=== PATIENT | male | born 1970 | race Caucasian/White ===

== ENCOUNTER 2016-09-17 19:17 | Inpatient (IN) | payer BC ==
[~2016-09-17] VITALS: Ht 172.7 cm; Wt 94.1 kg
[2016-09-17] VITALS (7 sets, daily range): BP systolic 128–168; BP diastolic 65–88
--- NOTE | ~2016-09-17 | ST ---
[place], [place] EXERCISE STRESS TEST REPORT NAME: JILLIAN STARKS [facility] #: [id number] UNIT #: [id number] ROOM: 510 DOCTOR: DYLAN CABRERA MD BIRTHDATE: [birth year] DOS: 09/19/2016 COMBINED EXERCISE, PHARMACOLOGIC MYOCARDIAL PERFUSION STRESS TEST INDICATIONS: Precordial chest pain, left ventricular dysfunction. PROCEDURE: The patient walked for 5 minutes on a full Davion protocol. He had not achieved 85% of his maximum predicted heart rate at that point, but developed dyspnea and leg fatigue. The treadmill was leveled and the speed of the belt was decreased to 1.6 miles per hour. At that point, he was given regadenoson 0.4 mg intravenously followed by a saline flush. He was asked to walk for 1 more minute, radionuclide was administered during that time. The patient did experience some dyspnea and fatigue, but had no chest pain during exercise. After exercise, he stated that his chest had "a little." His resting heart rate of 81 jadiel to 136, which represented 78% of his maximum predicted heart rate. The resting blood pressure of 100/74 jadiel to 148/72. He did not have any diagnostic ST or T-wave changes with exercise. IMPRESSION: 1. Limited exercise capacity due to dyspnea and fatigue. The patient did not have any diagnostic electrocardiographic changes at the level of exercise achieved. 2. Well tolerated infusion of regadenoson. 3. Radionuclide was administered. Please see the separately dictated imaging report for further details of the patient's stress test results. DYLAN CABRERA MD CM:STRESS:EXERCISE STRESS TEST REPORT [id number] DYLAN CABRERA MD
--- NOTE | ~2016-09-17 | WRIGHTHP ---
[place], [place] PATIENT HISTORY AND PHYSICAL EXAM NAME: JILLIAN STARKS [facility] #: [id number] UNIT #: [id number] ROOM: 510 DOCTOR: CHELLE PEOPLES DO BIRTHDATE: [birth year] DOS: 09/18/2016 PRIMARY CARE PHYSICIAN: Dr. Shukla. The patient was seen and evaluated with the resident on 09/18/2016. Please see the resident's note for further details. ASSESSMENT: 1. Acute bronchitis. 2. Chest pain, rule out myocardial infarction. 3. Dyspnea on exertion, most likely secondary to bronchitis. However, cardiac issues are suspected. 4. Diabetes mellitus type 2, currently diet controlled. 5. Tobacco abuse. 6. Hyperlipidemia. 7. History of Hodgkin's and non-Hodgkin's lymphoma diagnosed in 2002, treated with both stem cell transplant and chemotherapy. 8. Gastroesophageal reflux disease. 9. History of kidney stones. 10. History of noncompliance with medications. PLAN: Continue IV steroids, antibiotics and aerosol treatments. Cardiology has been consulted. An echocardiogram is ordered the stress test is planned for tomorrow. CHELLE PEOPLES DO CM:HISPHYS:PATIENT HISTORY AND PHYSICAL EXAMINATION [id number] CHELLE PEOPLES DO 09/18/16 1237 interface
--- NOTE | ~2016-09-17 | EKG ---
[place], [place] ELECTROCARDIOGRAM REPORT NAME: JILLIAN STARKS UNIT #: [id number] ROOM: 510 DOCTOR: DYLAN CABRERA MD BIRTHDATE: [birth year] DOS: 09/17/2016 TIME: 19:42 p.m. FINDINGS: Normal sinus rhythm at rate 84. Probable left atrial enlargement. Left ventricular hypertrophy. Nonspecific T-wave flattening. Abnormal electrocardiogram. DYLAN CABRERA MD CM:EKGRPT:ELECTROCARDIOGRAM REPORT [id number] DYLAN CABRERA MD
[~2016-09-17 19:17] MED LIST: ATORVASTATIN CA40 M1 PO; CYCLOBENZAPRINE10 MG PO; Diabeta,Micron2.5 MG PO; METFORMIN500 MG PO; NAPROXEN375 M1 PO; NEOSPORIN1 OI1 TP; PERCOCET 325 MG1 TA5 PO; PREVACID30 M1 PO; PRILOSEC40 MG PO; ZOFRAN ODT4 MG SL
[2016-09-17] MEDS ORDERED: DEPO TESTOS200 MG/ML IM (19:27)
[2016-09-17 19:48] LABS: BASO % 0.3 % (0.0-1.0); EOS # 0.1 10*3/uL (0.0-0.4); EOS % 1.6 % (1.0-4.0); HEMATOCRIT 34.9 % (42.0-52.0); HEMOGLOBIN 11.7 g/dl (14.0-18.0); LYMPH % 27.4 % (27.0-41.0); MEAN CELL VOLUME 92.3 fl (80.0-94.0); MEAN CORPUSCULAR HGB CONC 33.5 g/dl (33.0-37.0); MEAN PLATELET VOLUME 9.5 fl (9.6-12.3); MONO # 0.5 10*3/uL (0.1-1.0); MONO % 6.2 % (3.0-9.0); NEUT # 4.7 10*3/uL (2.3-7.9); NEUT % 64.4 % (47.0-73.0); PLATELET COUNT AUTOMATED 135 10*3/uL (130-400); RED BLOOD COUNT 3.78 10*6/uL (4.50-5.90); RED CELL DISTRI WIDTH 14.1 % (0-14.5); WHITE BLOOD COUNT 7.3 10*3/uL (4.8-10.8)
[2016-09-17 20:05] LABS: ALBUMIN 3.9 gm/dl (3.1-4.5); ALKALINE PHOSPHATASE 95 U/L (45-117); BILIRUBIN, TOTAL 0.8 mg/dl (0.2-1.0); BUN 12 mg/dl (7-24); CARBON DIOXIDE 25 mmol/L (21-32); CHLORIDE 106 mmol/L (98-107); EST GLOM FILT AFRICAN AMERICAN > 60 ml/min; GLUCOSE 145 mg/dL (65-99); MAGNESIUM 1.9 mg/dL (1.5-2.1); POTASSIUM 3.4 mmol/L (3.5-5.1); SGOT/AST 21 IU/L (3-35); SGPT/ALT 28 U/L (12-78); SODIUM 141 mmol/L (136-145)
[2016-09-17 20:06] LABS: TROPONIN I 0.017 ng/ml (<0.045)
[2016-09-17 20:21] LABS: INTERNATIONAL NORM RATIO 1.1 (2.0-3.5); PROTHROMBIN TIME 11.5 SECONDS (9.0-12.4)
[2016-09-18 04:26] LABS: BASO % 0.4 % (0.0-1.0); EOS % 0.2 % (1.0-4.0); HEMATOCRIT 37.1 % (42.0-52.0); HEMOGLOBIN 12.5 g/dl (14.0-18.0); LYMPH # 0.7 10*3/uL (1.3-4.4); LYMPH % 12.4 % (27.0-41.0); MEAN CELL VOLUME 91.8 fl (80.0-94.0); MEAN CORPUSCULAR HGB 30.9 pg (27.0-31.0); MEAN CORPUSCULAR HGB CONC 33.7 g/dl (33.0-37.0); MEAN PLATELET VOLUME 9.3 fl (9.6-12.3); MONO # 0.1 10*3/uL (0.1-1.0); MONO % 1.5 % (3.0-9.0); NEUT # 4.7 10*3/uL (2.3-7.9); NEUT % 85.3 % (47.0-73.0); PLATELET COUNT AUTOMATED 127 10*3/uL (130-400); RED BLOOD COUNT 4.04 10*6/uL (4.50-5.90); RED CELL DISTRI WIDTH 14.1 % (0-14.5); WHITE BLOOD COUNT 5.5 10*3/uL (4.8-10.8)
[2016-09-18 04:39] LABS: BUN 12 mg/dl (7-24); CARBON DIOXIDE 25 mmol/L (21-32); CHLORIDE 108 mmol/L (98-107); EST GLOM FILT AFRICAN AMERICAN > 60 ml/min; GLUCOSE 161 mg/dL (65-99); MAGNESIUM 2.1 mg/dL (1.5-2.1); POTASSIUM 4.2 mmol/L (3.5-5.1); SODIUM 143 mmol/L (136-145)
[2016-09-18 04:41] LABS: HEMOGLOBIN A1c 6.2 % (4.8-5.6)
[2016-09-18 04:44] LABS: CHOLESTEROL 113 mg/dL (<200); CPK 124 U/L (39-308); FREE T4 1.12 ng/dl (0.76-1.46); HDL CHOLESTEROL 34 mg/dl (40-60); LDL CHOLESTEROL 68 mg/dL (9-159); PHOSPHOROUS 3.4 mg/dL (2.5-4.9); TRIGLYCERIDES 55 mg/dl (<150); VLDL CHOLESTEROL 11 mg/dL (6-40)
[2016-09-18 04:45] LABS: CKMB 1.7 ng/ml (0.5-3.6)
[2016-09-18 04:46] LABS: TROPONIN I < 0.015 ng/ml (<0.045)
[2016-09-18 07:15] LABS: FOLIC ACID 11.02 ng/mL (>5.38); VITAMIN D, 25-HYDROXY 32.2 ng/mL (30-100)
[2016-09-18 08:00] VITALS: BP 140/76
[2016-09-18 10:12] LABS: CKMB 1.6 ng/ml (0.5-3.6); CPK 127 U/L (39-308)
[2016-09-18 10:13] LABS: TROPONIN I < 0.015 ng/ml (<0.045)
[2016-09-18 12:00] VITALS: BP 133/66
[2016-09-18 16:00] VITALS: BP 148/77
[2016-09-18 20:00] VITALS: BP 140/68
[2016-09-19] VITALS: BP 126/74
[2016-09-19 07:13] LABS: BASO % 0.1 % (0.0-1.0); HEMATOCRIT 34.3 % (42.0-52.0); HEMOGLOBIN 11.5 g/dl (14.0-18.0); LYMPH # 0.7 10*3/uL (1.3-4.4); LYMPH % 9.5 % (27.0-41.0); MEAN CELL VOLUME 91.5 fl (80.0-94.0); MEAN CORPUSCULAR HGB 30.7 pg (27.0-31.0); MEAN CORPUSCULAR HGB CONC 33.5 g/dl (33.0-37.0); MEAN PLATELET VOLUME 10.3 fl (9.6-12.3); MONO # 0.4 10*3/uL (0.1-1.0); MONO % 5.1 % (3.0-9.0); NEUT # 6.6 10*3/uL (2.3-7.9); PLATELET COUNT AUTOMATED 134 10*3/uL (130-400); RED BLOOD COUNT 3.75 10*6/uL (4.50-5.90); WHITE BLOOD COUNT 7.7 10*3/uL (4.8-10.8)
[2016-09-19 07:37] LABS: ALBUMIN 3.7 gm/dl (3.1-4.5); ALKALINE PHOSPHATASE 88 U/L (45-117); BILIRUBIN, TOTAL 0.4 mg/dl (0.2-1.0); BUN 19 mg/dl (7-24); CARBON DIOXIDE 26 mmol/L (21-32); CHLORIDE 107 mmol/L (98-107); EST GLOM FILT AFRICAN AMERICAN > 60 ml/min; GLUCOSE 170 mg/dL (65-99); MAGNESIUM 2.2 mg/dL (1.5-2.1); POTASSIUM 4.5 mmol/L (3.5-5.1); SGOT/AST 19 IU/L (3-35); SGPT/ALT 27 U/L (12-78); SODIUM 141 mmol/L (136-145)
[2016-09-19 08:00] VITALS: BP 142/78
[2016-09-19 16:00] VITALS: BP 144/70
[2016-09-19 20:00] VITALS: BP 149/86
[2016-09-20] VITALS: BP 127/71
[2016-09-20 07:15] LABS: HEMATOCRIT 34.6 % (42.0-52.0); HEMOGLOBIN 11.4 g/dl (14.0-18.0); LYMPH # 0.8 10*3/uL (1.3-4.4); LYMPH % 10.9 % (27.0-41.0); MEAN CELL VOLUME 91.5 fl (80.0-94.0); MEAN CORPUSCULAR HGB 30.2 pg (27.0-31.0); MEAN CORPUSCULAR HGB CONC 32.9 g/dl (33.0-37.0); MEAN PLATELET VOLUME 10.2 fl (9.6-12.3); MONO # 0.3 10*3/uL (0.1-1.0); MONO % 3.9 % (3.0-9.0); NEUT # 6.2 10*3/uL (2.3-7.9); NEUT % 84.9 % (47.0-73.0); PLATELET COUNT AUTOMATED 121 10*3/uL (130-400); RED BLOOD COUNT 3.78 10*6/uL (4.50-5.90); RED CELL DISTRI WIDTH 14.1 % (0-14.5); WHITE BLOOD COUNT 7.3 10*3/uL (4.8-10.8)
[2016-09-20 07:35] LABS: CHLORIDE 107 mmol/L (98-107); POTASSIUM 4.4 mmol/L (3.5-5.1); SODIUM 136 mmol/L (136-145)
[2016-09-20 07:48] LABS: ALBUMIN 3.7 gm/dl (3.1-4.5); ALKALINE PHOSPHATASE 82 U/L (45-117); BILIRUBIN, TOTAL 0.3 mg/dl (0.2-1.0); BUN 22 mg/dl (7-24); CARBON DIOXIDE 24 mmol/L (21-32); EST GLOM FILT AFRICAN AMERICAN > 60 ml/min; GLUCOSE 182 mg/dL (65-99); SGOT/AST 12 IU/L (3-35); SGPT/ALT 28 U/L (12-78); TOTAL PROTEIN 6.4 gm/dL (6.4-8.2)
[2016-09-20] MEDS ORDERED: ASPIRIN ADULT L81 M2 PO (07:57)
[2016-09-20] MEDS ORDERED: CARVEDILOL3.125 MG PO (07:57)
[2016-09-20] MEDS ORDERED: LISINOPRIL5 MG PO (07:57)
[2016-09-20 08:00] VITALS: BP 127/85
== END 2016-09-20 08:42 | disposition other institution (70) | DRG 202 ==
LOC: ED 19:17 → EDHOLD 21:05 → 5E 21:23
PROVIDERS: Emergency Medicine; Emergency Medicine Emergency Medical Services; Internal Medicine
DX: J20.9 Acute bronchitis, unspecified (principal); I50.40 Unspecified combined systolic (congestive) and diastolic (congestive) heart failure; Z94.84 Stem cells transplant status; E11.65 Type 2 diabetes mellitus with hyperglycemia; E78.5 Hyperlipidemia, unspecified; K21.9 Gastro-esophageal reflux disease without esophagitis; R07.9 Chest pain, unspecified; Z85.71 Personal history of Hodgkin lymphoma; Z88.5 Allergy status to narcotic agent; Z83.3 Family history of diabetes mellitus; Z82.49 Family history of ischemic heart disease and other diseases of the circulatory system; Z72.0 Tobacco use; Z87.442 Personal history of urinary calculi; Z82.3 Family history of stroke; Z79.899 Other long term (current) drug therapy

== ENCOUNTER → 2016-12-06 | Outpatient (CLI) | payer BC ==
[~2016-12-06] MED LIST changes: +ASPIRIN ADULT L81 M2 PO; +CARVEDILOL3.125 MG PO; +DEPO TESTOS200 MG/ML IM; +LISINOPRIL5 MG PO
[2016-12-06 13:29] LABS: BASO % 0.2 % (0.0-1.0); EOS # 0.1 10*3/uL (0.0-0.4); EOS % 1.5 % (1.0-4.0); HEMATOCRIT 38.8 % (42.0-52.0); LYMPH # 2.2 10*3/uL (1.3-4.4); LYMPH % 39.5 % (27.0-41.0); MEAN CELL VOLUME 90.9 fl (80.0-94.0); MEAN CORPUSCULAR HGB 30.4 pg (27.0-31.0); MEAN CORPUSCULAR HGB CONC 33.5 g/dl (33.0-37.0); MEAN PLATELET VOLUME 8.8 fl (9.6-12.3); MONO # 0.4 10*3/uL (0.1-1.0); MONO % 7.5 % (3.0-9.0); NEUT # 2.8 10*3/uL (2.3-7.9); NEUT % 51.1 % (47.0-73.0); PLATELET COUNT AUTOMATED 113 10*3/uL (130-400); RED BLOOD COUNT 4.27 10*6/uL (4.50-5.90); RED CELL DISTRI WIDTH 14.4 % (0-14.5); WHITE BLOOD COUNT 5.5 10*3/uL (4.8-10.8)
[2016-12-06 14:05] LABS: ALBUMIN 3.9 gm/dl (3.1-4.5); ALKALINE PHOSPHATASE 92 U/L (45-117); BILIRUBIN, TOTAL 0.4 mg/dl (0.2-1.0); BUN 14 mg/dl (7-24); CARBON DIOXIDE 30 mmol/L (21-32); CHLORIDE 106 mmol/L (98-107); CHOLESTEROL 171 mg/dL (<200); EST GLOM FILT AFRICAN AMERICAN > 60 ml/min; GLUCOSE 91 mg/dL (65-99); HDL CHOLESTEROL 44 mg/dl (40-60); LDL CHOLESTEROL 100 mg/dL (9-159); POTASSIUM 4.3 mmol/L (3.5-5.1); SGOT/AST 25 IU/L (3-35); SGPT/ALT 33 U/L (12-78); SODIUM 142 mmol/L (136-145); TOTAL PROTEIN 6.9 gm/dL (6.4-8.2); TRIGLYCERIDES 134 mg/dl (<150); VLDL CHOLESTEROL 27 mg/dL (6-40)
== END ==
LOC: LAB 13:15
PROVIDERS: Internal Medicine
DX: R53.83 Other fatigue (principal); R79.9 Abnormal finding of blood chemistry, unspecified

== ENCOUNTER → 2017-02-07 | Outpatient (CLI) | payer BC ==
[2017-02-07 10:30] LABS: BUN 26 mg/dl (7-24); CHLORIDE 106 mmol/L (98-107); CREATININE 1.35 mg/dL (0.70-1.30); POTASSIUM 5.3 mmol/L (3.5-5.1); SODIUM 137 mmol/L (136-145)
== END | disposition home or self-care (01) ==
LOC: LAB 09:28
PROVIDERS: Internal Medicine Cardiovascular Disease
DX: I50.22 Chronic systolic (congestive) heart failure (principal); I25.10 Atherosclerotic heart disease of native coronary artery without angina pectoris

== ENCOUNTER → 2017-03-29 | Outpatient (CLI) | payer BC ==
[~2017-03-29] MED LIST changes: +ALDACTONE25 MG PO; +CARVEDILOL25 MG PO; +FARXIGA5 M1 PO
[2017-03-29 11:15] LABS: BASO % 0.5 % (0.0-1.0); EOS # 0.1 10*3/uL (0.0-0.4); EOS % 1.9 % (1.0-4.0); HEMATOCRIT 36.8 % (42.0-52.0); HEMOGLOBIN 12.7 g/dl (14.0-18.0); LYMPH # 2.1 10*3/uL (1.3-4.4); LYMPH % 37.6 % (27.0-41.0); MEAN CELL VOLUME 95.3 fl (80.0-94.0); MEAN CORPUSCULAR HGB 32.9 pg (27.0-31.0); MEAN CORPUSCULAR HGB CONC 34.5 g/dl (33.0-37.0); MEAN PLATELET VOLUME 9.5 fl (9.6-12.3); MONO # 0.4 10*3/uL (0.1-1.0); MONO % 7.2 % (3.0-9.0); NEUT % 52.6 % (47.0-73.0); PLATELET COUNT AUTOMATED 123 10*3/uL (130-400); RED BLOOD COUNT 3.86 10*6/uL (4.50-5.90); RED CELL DISTRI WIDTH 12.8 % (0-14.5); WHITE BLOOD COUNT 5.7 10*3/uL (4.8-10.8)
[2017-03-29 11:37] LABS: BUN 18 mg/dl (7-24); CHLORIDE 106 mmol/L (98-107); CREATININE 1.24 mg/dL (0.70-1.30); POTASSIUM 4.2 mmol/L (3.5-5.1); SODIUM 140 mmol/L (136-145)
[2017-03-29 11:40] LABS: INTERNATIONAL NORM RATIO 0.9 (2.0-3.5)
== END | disposition home or self-care (01) ==
LOC: LAB 09:13 → SDC 09:30 → CARD 05-01 09:30
PROVIDERS: Surgery
DX: Z01.818 Encounter for other preprocedural examination (principal); L98.8 Other specified disorders of the skin and subcutaneous tissue; E11.9 Type 2 diabetes mellitus without complications; I25.2 Old myocardial infarction; F17.200 Nicotine dependence, unspecified, uncomplicated; R79.1 Abnormal coagulation profile

== ENCOUNTER → 2017-04-04 | Day surgery (SDC) | payer BC ==
[~2017-04-04] VITALS: Ht 175.2 cm; Wt 108.0 kg
[~2017-04-04] MED LIST changes: +NORCO 5-325 TA1 EACH PO
--- NOTE | ~2017-04-04 | O ---
[place], [place] OPERATIVE NOTE NAME: JILLIAN STARKS UNIT #: [id number] ROOM: DOCTOR: CARLENE SHULTZ MD BIRTHDATE: [birth year] DOS: 04/04/2017 PREOPERATIVE DIAGNOSIS: Left perineal skin lesion. POSTOPERATIVE DIAGNOSIS: Left perineal skin lesion. PROCEDURE: Excision of left perineal skin lesions. SURGEON: Carlene Shultz MD PHYTOCHEMISTRY PROFESSOR: ANABELLA. ANESTHESIA: LMA with local. INDICATIONS: This is a 46-year-old gentleman with a longstanding history of a left perineal skin lesion, who is here for the above-mentioned procedure. The procedure and its complications were explained to the patient in detail preoperatively. Complications that were discussed included, but were not limited to bleeding, infection, recurrence, prolonged postoperative pain, and damage to underlying vital structures. He agreed to proceed. DESCRIPTION OF PROCEDURE: After identifying the patient, the patient was brought to the operating suite and laid in the supine position. After general anesthesia was administered by the anesthesia team, the patient was placed in lithotomy position and the parts were then painted and draped in the usual sterile fashion. With the help of a marking pen, the skin incision was marked with local anesthesia (1% plain lidocaine) was injected over the marked site. With the help of a knife, the incision was made and it was deepened in layers and the mass was excised in its entirety and sent for histopathological diagnosis. Thereafter, hemostasis was achieved with the help of electrocautery. The subcutaneous tissue was then approximated with the help of 3-0 Vicryl in an interrupted fashion. The skin edges were approximated with the help of 4-0 Vicryl in a subcuticular running fashion. Additional 4-0 Vicryl sutures were taken on the skin edges for better closure. A dressing was placed. The patient tolerated the procedure well and was taken to the recovery room in stable fashion. There were no complications. Dr. Carlene Shultz, the attending surgeon, was present throughout the operating case. [place], [place] OPERATIVE NOTE NAME: JILLIAN STARKS UNIT #: [id number] ROOM: DOCTOR: CARLENE SHULTZ MD BIRTHDATE: [birth year] Carlene Shultz MD CM:OPRECORD:OPERATIVE NOTE [id number] CARLENE SHULTZ MD 04/04/1744 interface
[2017-04-04 06:45] VITALS: BP 142/66
[2017-04-04 08:39] VITALS: BP 133/66
[2017-04-04 08:54] VITALS: BP 134/69
[2017-04-04 09:09] VITALS: BP 116/45
[2017-04-04 09:24] VITALS: BP 130/62
[2017-04-04 09:39] VITALS: BP 126/57
== END | disposition home or self-care (01) ==
LOC: SDC 02:37
DX: L82.1 Other seborrheic keratosis (principal); I25.2 Old myocardial infarction; K21.9 Gastro-esophageal reflux disease without esophagitis; F17.210 Nicotine dependence, cigarettes, uncomplicated; Z90.49 Acquired absence of other specified parts of digestive tract; E11.9 Type 2 diabetes mellitus without complications; Z79.899 Other long term (current) drug therapy; Z88.8 Allergy status to other drugs, medicaments and biological substances; I25.10 Atherosclerotic heart disease of native coronary artery without angina pectoris; M19.90 Unspecified osteoarthritis, unspecified site; E78.00 Pure hypercholesterolemia, unspecified; Z83.3 Family history of diabetes mellitus; Z82.49 Family history of ischemic heart disease and other diseases of the circulatory system

== ENCOUNTER 2017-04-11 17:37 | Emergency (ER) | payer BC ==
[~2017-04-11] VITALS: Wt 90.7 kg
[2017-04-11 18:11] LABS: BASO % 0.3 % (0.0-1.0); EOS # 0.1 10*3/uL (0.0-0.4); EOS % 1.9 % (1.0-4.0); HEMATOCRIT 33.5 % (42.0-52.0); HEMOGLOBIN 11.7 g/dl (14.0-18.0); LYMPH # 2.3 10*3/uL (1.3-4.4); LYMPH % 35.9 % (27.0-41.0); MEAN CELL VOLUME 94.1 fl (80.0-94.0); MEAN CORPUSCULAR HGB 32.9 pg (27.0-31.0); MEAN CORPUSCULAR HGB CONC 34.9 g/dl (33.0-37.0); MEAN PLATELET VOLUME 9.2 fl (9.6-12.3); MONO # 0.6 10*3/uL (0.1-1.0); MONO % 9.5 % (3.0-9.0); NEUT # 3.3 10*3/uL (2.3-7.9); NEUT % 52.2 % (47.0-73.0); PLATELET COUNT AUTOMATED 125 10*3/uL (130-400); RED BLOOD COUNT 3.56 10*6/uL (4.50-5.90); RED CELL DISTRI WIDTH 12.7 % (0-14.5); WHITE BLOOD COUNT 6.4 10*3/uL (4.8-10.8)
[2017-04-11 18:29] LABS: ALBUMIN 3.6 gm/dl (3.1-4.5); ALKALINE PHOSPHATASE 101 U/L (45-117); BUN 17 mg/dl (7-24); CHLORIDE 107 mmol/L (98-107); CREATININE 1.26 mg/dL (0.70-1.30); POTASSIUM 3.8 mmol/L (3.5-5.1); SGOT/AST 16 IU/L (3-35); SGPT/ALT 31 U/L (12-78); SODIUM 140 mmol/L (136-145); TOTAL PROTEIN 6.7 gm/dL (6.4-8.2)
[2017-04-11 18:32] LABS: ACT PARTIAL THROMBO TIME 23.5 SECONDS (20.8-31.5)
[2017-04-11 18:45] VITALS: BP 151/82
== END 2017-04-11 18:56 | disposition short-term general hospital (02) ==
LOC: ED 17:37
PROVIDERS: Emergency Medicine
DX: I63.9 Cerebral infarction, unspecified (principal); Z88.6 Allergy status to analgesic agent; Z79.899 Other long term (current) drug therapy; Z90.49 Acquired absence of other specified parts of digestive tract

== ENCOUNTER → 2017-04-15 | Outpatient (CLI) | payer BC ==
--- NOTE | ~2017-04-15 | HM ---
[place], [place] HOLTER MONITOR REPORT NAME: JILLIAN STARKS UNIT #: [id number] ROOM: DOCTOR: DYLAN CABRERA MD BIRTHDATE: [birth year] DOS: A 48-HOUR HOLTER MONITOR REPORT Study was recorded from April 15 through . The recording was analyzed and this interpretation was dictated on 04/17/2017. INDICATIONS: Stroke. FINDINGS: The patient's cardiac rhythms were recorded for 48 hours utilizing a Holter device. Basic rhythm is normal sinus with an average heart rate of 68. The heart rate in sinus rhythm varied from 50 beats per minute to 105 beats per minute. Frequent premature ventricular contractions were recorded. These were all isolated events. Most of them occurred during hours that would normally be associated with sleep. No ventricular tachycardia was seen. Rare premature atrial contractions were recorded with 2 atrial couplets, but no SVT. No prolonged pauses were seen. No diary was returned. IMPRESSION: 1. Frequent isolated premature ventricular contractions, especially during hours normally associated with sleep. Sleep apnea should be considered. 2. Otherwise normal 48-hour Holter monitor. DYLAN CABRERA MD CM:HOLTER:HOLTER MONITOR REPORT [id number] DYLAN CABRERA MD
== END | disposition home or self-care (01) ==
LOC: CARD 11:18
DX: I63.9 Cerebral infarction, unspecified (principal)

== ENCOUNTER → 2017-04-30 | Outpatient (CLI) | payer BC | END | disposition home or self-care (01) | LOC: US 16:41 | DX: N43.3 Hydrocele, unspecified (principal) ==

== ENCOUNTER → 2018-05-14 | Outpatient (CLI) | payer BC | LOC: CARD 07:34 | DX: R00.1 Bradycardia, unspecified (principal); I08.1 Rheumatic disorders of both mitral and tricuspid valves; I50.22 Chronic systolic (congestive) heart failure; I42.0 Dilated cardiomyopathy; I25.10 Atherosclerotic heart disease of native coronary artery without angina pectoris ==

== ENCOUNTER → 2019-04-02 | Outpatient (CLI) | payer BC | END | disposition home or self-care (01) | LOC: LAB 03:49 | DX: E29.1 Testicular hypofunction (principal) ==

== ENCOUNTER → 2019-05-12 | Outpatient (CLI) | payer BC ==
[2019-05-12 05:36] LABS: ALBUMIN 3.1 gm/dl (3.1-4.5); ALKALINE PHOSPHATASE 98 U/L (45-117); BILIRUBIN, DIRECT < 0.1 mg/dL (0.0-0.2); SGOT/AST 18 IU/L (3-35); SGPT/ALT 21 U/L (12-78); TOTAL PROTEIN 6.8 gm/dL (6.4-8.2)
== END | disposition home or self-care (01) ==
LOC: LAB 04:37
PROVIDERS: Nurse Practitioner Primary Care
DX: E29.1 Testicular hypofunction (principal); N40.1 Benign prostatic hyperplasia with lower urinary tract symptoms

== ENCOUNTER → 2019-06-13 | Outpatient (CLI) | payer BC ==
[2019-06-13 06:44] LABS: ALBUMIN 3.4 gm/dl (3.1-4.5); ALKALINE PHOSPHATASE 100 U/L (45-117); BILIRUBIN, DIRECT < 0.1 mg/dL (0.0-0.2); SGOT/AST 17 IU/L (3-35); SGPT/ALT 35 U/L (12-78); TOTAL PROTEIN 6.6 gm/dL (6.4-8.2)
== END | disposition home or self-care (01) ==
LOC: LAB 05:00
PROVIDERS: Nurse Practitioner Primary Care
DX: E29.1 Testicular hypofunction (principal); N40.1 Benign prostatic hyperplasia with lower urinary tract symptoms

== ENCOUNTER → 2019-06-19 | Day surgery (SDC) | payer BC ==
[~2019-06-19] VITALS: Ht 175.2 cm; Wt 106.6 kg
[2019-06-19 09:28] VITALS: BP 133/76
[2019-06-19 11:42] VITALS: BP 134/70
[2019-06-19 11:59] VITALS: BP 134/66
[2019-06-19 12:16] VITALS: BP 142/68
== END | disposition home or self-care (01) ==
LOC: SDC 06-17 11:45
DX: Z12.11 Encounter for screening for malignant neoplasm of colon (principal); D12.4 Benign neoplasm of descending colon; D12.5 Benign neoplasm of sigmoid colon; D12.7 Benign neoplasm of rectosigmoid junction; K21.9 Gastro-esophageal reflux disease without esophagitis; K29.50 Unspecified chronic gastritis without bleeding; E11.9 Type 2 diabetes mellitus without complications; I25.10 Atherosclerotic heart disease of native coronary artery without angina pectoris; E78.5 Hyperlipidemia, unspecified; I50.9 Heart failure, unspecified; I25.2 Old myocardial infarction; Z98.890 Other specified postprocedural states; Z79.899 Other long term (current) drug therapy; Z87.891 Personal history of nicotine dependence; Z83.3 Family history of diabetes mellitus; Z82.49 Family history of ischemic heart disease and other diseases of the circulatory system

== ENCOUNTER 2020-01-14 12:58 | Emergency (ER) | payer BC ==
[~2020-01-14] VITALS: Ht 175.2 cm; Wt 106.6 kg
[2020-01-14 13:04] VITALS: BP 116/68
[2020-01-14] MEDS ORDERED: Tobrex Ophth S2.5 ML OPH (13:24)
[2020-01-14] MEDS ORDERED: ACULAR 0.5%3 ML OPH (13:24)
== END 2020-01-14 13:56 | disposition home or self-care (01) ==
LOC: ED 12:58
DX: S05.02XA Injury of conjunctiva and corneal abrasion without foreign body, left eye, initial encounter (principal); S05.01XA Injury of conjunctiva and corneal abrasion without foreign body, right eye, initial encounter; K21.9 Gastro-esophageal reflux disease without esophagitis; I25.2 Old myocardial infarction; I50.9 Heart failure, unspecified; E11.9 Type 2 diabetes mellitus without complications; F17.200 Nicotine dependence, unspecified, uncomplicated; Z88.6 Allergy status to analgesic agent; Z79.899 Other long term (current) drug therapy; X58.XXXA Exposure to other specified factors, initial encounter; Y93.89 Activity, other specified; Y92.89 Other specified places as the place of occurrence of the external cause; Y99.8 Other external cause status

== ENCOUNTER → 2020-04-22 | Outpatient (CLI) | payer BC ==
[~2020-04-22] MED LIST changes: +ACULAR 0.5%3 ML OPH; +Tobrex Ophth S2.5 ML OPH
== END | disposition home or self-care (01) ==
LOC: COVID19 08:56
PROVIDERS: ATTEND Nurse Practitioner Primary Care
DX: Z20.828 Contact with and (suspected) exposure to other viral communicable diseases (principal)

== ENCOUNTER → 2020-10-17 | Outpatient (CLI) | payer BC ==
[2020-10-17 07:02] LABS: BASO % 0.4 % (0.0-1.0); EOS # 0.1 10*3/uL (0.0-0.4); EOS % 1.7 % (1.0-4.0); HEMATOCRIT 39.3 % (42.0-52.0); MEAN CORPUSCULAR HGB 31.8 pg (27.0-31.0); MEAN CORPUSCULAR HGB CONC 33.8 g/dl (33.0-37.0); MEAN PLATELET VOLUME 9.5 fl (9.6-12.3); MONO # 0.4 10*3/uL (0.1-1.0); MONO % 6.1 % (3.0-9.0); NEUT # 4.4 10*3/uL (2.3-7.9); NEUT % 63.5 % (47.0-73.0); PLATELET COUNT AUTOMATED 147 10*3/uL (130-400); RED BLOOD COUNT 4.18 10*6/uL (4.50-5.90); RED CELL DISTRI WIDTH 13.2 % (0-14.5)
[2020-10-17 07:31] LABS: ALBUMIN 3.2 gm/dl (3.1-4.5); ALKALINE PHOSPHATASE 108 U/L (45-117); BUN 13 mg/dl (7-24); CHLORIDE 108 mmol/L (98-107); CHOLESTEROL 160 mg/dL (<200); CREATININE 0.96 mg/dL (0.70-1.30); LDL CHOLESTEROL 91 mg/dL (9-159); POTASSIUM 4.3 mmol/L (3.5-5.1); SGOT/AST 17 IU/L (3-35); SGPT/ALT 34 U/L (12-78); SODIUM 138 mmol/L (136-145); TOTAL PROTEIN 6.9 gm/dL (6.4-8.2); TRIGLYCERIDES 138 mg/dl (<150)
[2020-10-20 11:07] LABS: TESTOSTERONE FREE, (DIRECT) 5.1 pg/mL (7.2-24.0)
== END | disposition home or self-care (01) ==
LOC: LAB 06:16
PROVIDERS: ATTEND Nurse Practitioner Primary Care
DX: Z12.5 Encounter for screening for malignant neoplasm of prostate (principal); E11.9 Type 2 diabetes mellitus without complications; E29.1 Testicular hypofunction; E53.8 Deficiency of other specified B group vitamins

== ENCOUNTER → 2021-01-16 | Outpatient (CLI) | payer BC | END | disposition home or self-care (01) | LOC: ORTHO 00:39 | PROVIDERS: ATTEND Orthopaedic Surgery | DX: M25.511 Pain in right shoulder (principal) ==

== ENCOUNTER → 2021-01-18 | Outpatient (CLI) | payer BC ==
[2021-01-18 08:47] LABS: ALBUMIN 3.5 gm/dl (3.1-4.5); ALKALINE PHOSPHATASE 112 U/L (45-117); BUN 18 mg/dl (7-24); CHLORIDE 106 mmol/L (98-107); CREATININE 0.97 mg/dL (0.70-1.30); POTASSIUM 3.7 mmol/L (3.5-5.1); SGOT/AST 10 IU/L (3-35); SGPT/ALT 31 U/L (12-78); SODIUM 139 mmol/L (136-145); TOTAL PROTEIN 6.8 gm/dL (6.4-8.2)
[2021-01-23 04:05] LABS: TESTOSTERONE FREE, (DIRECT) 1.9 pg/mL (7.2-24.0)
== END | disposition home or self-care (01) ==
LOC: LAB 07:33
PROVIDERS: ATTEND Nurse Practitioner Primary Care
DX: E29.1 Testicular hypofunction (principal); E11.9 Type 2 diabetes mellitus without complications

== ENCOUNTER → 2021-10-25 | Outpatient (CLI) | payer BC | END | disposition home or self-care (01) | LOC: EDSTATUS 00:22 → RESCLI 00:24 | PROVIDERS: ATTEND Emergency Medicine | DX: I11.9 Hypertensive heart disease without heart failure (principal); I25.10 Atherosclerotic heart disease of native coronary artery without angina pectoris; E11.9 Type 2 diabetes mellitus without complications; E55.9 Vitamin D deficiency, unspecified; K21.00 Gastro-esophageal reflux disease with esophagitis, without bleeding; E29.1 Testicular hypofunction; E78.2 Mixed hyperlipidemia; R53.83 Other fatigue; R05.9 Cough, unspecified; Z79.899 Other long term (current) drug therapy; Z79.82 Long term (current) use of aspirin; Z88.8 Allergy status to other drugs, medicaments and biological substances ==

== ENCOUNTER → 2021-11-15 | Outpatient (CLI) | payer BC, OTHER ==
[2021-11-15 07:56] LABS: BASO % 0.5 % (0.0-1.0); EOS # 0.1 10*3/uL (0.0-0.4); EOS % 1.4 % (1.0-4.0); LYMPH # 2.1 10*3/uL (1.3-4.4); LYMPH % 30.9 % (27.0-41.0); MEAN CELL VOLUME 91.5 fl (80.0-94.0); MEAN CORPUSCULAR HGB 31.1 pg (27.0-31.0); MEAN PLATELET VOLUME 9.6 fl (9.6-12.3); MONO # 0.5 10*3/uL (0.1-1.0); MONO % 7.1 % (3.0-9.0); NEUT % 59.8 % (47.0-73.0); PLATELET COUNT AUTOMATED 138 10*3/uL (130-400); RED BLOOD COUNT 4.37 10*6/uL (4.50-5.90); RED CELL DISTRI WIDTH 12.9 % (0-14.5); WHITE BLOOD COUNT 6.6 10*3/uL (4.8-10.8)
[2021-11-15 08:15] LABS: ALKALINE PHOSPHATASE 105 U/L (45-117); BUN 25 mg/dl (7-24); CHLORIDE 105 mmol/L (98-107); CHOLESTEROL 169 mg/dL (<200); CREATININE 1.32 mg/dL (0.70-1.30); POTASSIUM 4.4 mmol/L (3.5-5.1); SGOT/AST 17 IU/L (3-35); SGPT/ALT 36 U/L (12-78); SODIUM 134 mmol/L (136-145); TOTAL PROTEIN 6.7 gm/dL (6.4-8.2); TRIGLYCERIDES 477 mg/dl (<150)
[2021-11-18 11:07] LABS: TESTOSTERONE FREE, (DIRECT) 12.4 pg/mL (7.2-24.0)
== END | disposition home or self-care (01) ==
LOC: LAB 07:39
PROVIDERS: Internal Medicine; ATTEND Internal Medicine
DX: E11.9 Type 2 diabetes mellitus without complications (principal); I10 Essential (primary) hypertension; E78.2 Mixed hyperlipidemia; E55.9 Vitamin D deficiency, unspecified; R53.83 Other fatigue

== ENCOUNTER → 2021-11-24 | Outpatient (CLI) | payer BC, OTHER | END | disposition home or self-care (01) | LOC: RESCLI 15:07 | PROVIDERS: ATTEND Emergency Medicine | DX: T30.4 Corrosion of unspecified body region, unspecified degree (principal); I11.9 Hypertensive heart disease without heart failure; E11.9 Type 2 diabetes mellitus without complications; E55.9 Vitamin D deficiency, unspecified; K21.00 Gastro-esophageal reflux disease with esophagitis, without bleeding; I25.10 Atherosclerotic heart disease of native coronary artery without angina pectoris; R05.9 Cough, unspecified; E29.1 Testicular hypofunction; Z85.79 Personal history of other malignant neoplasms of lymphoid, hematopoietic and related tissues; Z79.899 Other long term (current) drug therapy; Z88.8 Allergy status to other drugs, medicaments and biological substances; Z79.82 Long term (current) use of aspirin ==

== ENCOUNTER → 2021-12-07 | Outpatient (CLI) | payer BC, OTHER | END | disposition home or self-care (01) | LOC: RESCLI 01:05 | PROVIDERS: ATTEND Family Medicine | DX: E11.9 Type 2 diabetes mellitus without complications (principal); Z72.0 Tobacco use; I50.9 Heart failure, unspecified; Z79.899 Other long term (current) drug therapy; Z79.82 Long term (current) use of aspirin; Z88.8 Allergy status to other drugs, medicaments and biological substances ==

== ENCOUNTER → 2021-12-27 | Outpatient (CLI) | payer BC, OTHER | END | disposition home or self-care (01) | LOC: CT 00:49 | PROVIDERS: ATTEND Internal Medicine Hematology & Oncology | DX: C85.92 Non-Hodgkin lymphoma, unspecified, intrathoracic lymph nodes (principal); I25.10 Atherosclerotic heart disease of native coronary artery without angina pectoris; I71.9 Aortic aneurysm of unspecified site, without rupture ==

== ENCOUNTER → 2022-02-08 | Outpatient (CLI) | payer BC, OTHER ==
[2022-02-08 17:31] LABS: BUN 7 mg/dl (7-24); CHLORIDE 111 mmol/L (98-107); SODIUM 144 mmol/L (136-145)
== END | disposition home or self-care (01) ==
LOC: RESCLI 02:06
PROVIDERS: Internal Medicine; ATTEND Internal Medicine
DX: E11.9 Type 2 diabetes mellitus without complications (principal); I25.10 Atherosclerotic heart disease of native coronary artery without angina pectoris; E29.1 Testicular hypofunction; E55.9 Vitamin D deficiency, unspecified; E78.2 Mixed hyperlipidemia; K21.00 Gastro-esophageal reflux disease with esophagitis, without bleeding; R05.9 Cough, unspecified; T30.4 Corrosion of unspecified body region, unspecified degree; Z79.899 Other long term (current) drug therapy; Z88.8 Allergy status to other drugs, medicaments and biological substances; Z79.82 Long term (current) use of aspirin

== ENCOUNTER → 2022-05-10 | Outpatient (CLI) | payer BC, OTHER | END | disposition home or self-care (01) | LOC: RESCLI 04:56 | PROVIDERS: ATTEND Internal Medicine | DX: Z23 Encounter for immunization (principal); E11.9 Type 2 diabetes mellitus without complications; I10 Essential (primary) hypertension; I25.10 Atherosclerotic heart disease of native coronary artery without angina pectoris; E29.1 Testicular hypofunction; E55.9 Vitamin D deficiency, unspecified; R05.9 Cough, unspecified; K21.00 Gastro-esophageal reflux disease with esophagitis, without bleeding; Z79.899 Other long term (current) drug therapy ==

== ENCOUNTER → 2022-09-06 | Outpatient (CLI) | payer BC, OTHER ==
[2022-09-06 17:10] LABS: URINE CREATININE RANDOM 214.9 mg/dL
== END | disposition home or self-care (01) ==
LOC: RESCLI 01:42
PROVIDERS: Internal Medicine; ATTEND Emergency Medicine
DX: E11.9 Type 2 diabetes mellitus without complications (principal); E55.9 Vitamin D deficiency, unspecified; K21.00 Gastro-esophageal reflux disease with esophagitis, without bleeding; E78.2 Mixed hyperlipidemia; I10 Essential (primary) hypertension; R05.9 Cough, unspecified; I25.10 Atherosclerotic heart disease of native coronary artery without angina pectoris; Z87.891 Personal history of nicotine dependence; Z98.890 Other specified postprocedural states; Z82.49 Family history of ischemic heart disease and other diseases of the circulatory system; Z88.5 Allergy status to narcotic agent; Z79.82 Long term (current) use of aspirin; Z79.899 Other long term (current) drug therapy

== ENCOUNTER → 2023-01-16 | Outpatient (CLI) | payer BC, OTHER | END | disposition home or self-care (01) | LOC: RESCLI 13:16 | PROVIDERS: ATTEND Student in an Organized Health Care Education/Training Program | DX: E11.9 Type 2 diabetes mellitus without complications (principal); I10 Essential (primary) hypertension; E78.2 Mixed hyperlipidemia; R05.9 Cough, unspecified; Z79.82 Long term (current) use of aspirin; Z79.899 Other long term (current) drug therapy; Z98.890 Other specified postprocedural states; Z87.891 Personal history of nicotine dependence; Z88.8 Allergy status to other drugs, medicaments and biological substances ==

== ENCOUNTER → 2023-01-17 | Outpatient (CLI) | payer BC, OTHER ==
[2023-01-17 08:35] LABS: CHOLESTEROL 140 mg/dL (<200); LDL CHOLESTEROL 61 mg/dL (9-159); TRIGLYCERIDES 237 mg/dl (<150)
== END | disposition home or self-care (01) ==
LOC: LAB 00:23
PROVIDERS: ATTEND Internal Medicine
DX: E11.9 Type 2 diabetes mellitus without complications (principal); E78.2 Mixed hyperlipidemia

== ENCOUNTER → 2023-04-24 | Outpatient (CLI) | payer BC, OTHER ==
[2023-04-24 15:12] LABS: BASO % 0.3 % (0.0-1.0); EOS # 0.1 10*3/uL (0.0-0.4); EOS % 1.8 % (1.0-4.0); HEMATOCRIT 40.5 % (42.0-52.0); LYMPH # 2.6 10*3/uL (1.3-4.4); MEAN CELL VOLUME 92.9 fl (80.0-94.0); MEAN CORPUSCULAR HGB 32.1 pg (27.0-31.0); MEAN CORPUSCULAR HGB CONC 34.6 g/dl (33.0-37.0); MEAN PLATELET VOLUME 9.4 fl (9.6-12.3); MONO # 0.4 10*3/uL (0.1-1.0); MONO % 6.4 % (3.0-9.0); NEUT # 3.5 10*3/uL (2.3-7.9); NEUT % 52.3 % (47.0-73.0); PLATELET COUNT AUTOMATED 147 10*3/uL (130-400); RED BLOOD COUNT 4.36 10*6/uL (4.50-5.90); RED CELL DISTRI WIDTH 13.1 % (0-14.5); WHITE BLOOD COUNT 6.6 10*3/uL (4.8-10.8)
[2023-04-24 15:39] LABS: ALKALINE PHOSPHATASE 109 U/L (46-116); BUN 7 mg/dl (9-23); CHLORIDE 106 mmol/L (98-107); POTASSIUM 3.6 mmol/L (3.4-5.1); SGPT/ALT 17 U/L (5-49); TOTAL PROTEIN 6.7 gm/dL (6.0-8.0)
[2023-04-28 20:12] LABS: TESTOSTERONE FREE, (DIRECT) 1.3 pg/mL (7.2-24.0)
== END | disposition home or self-care (01) ==
LOC: RESCLI 13:37
PROVIDERS: Internal Medicine; ATTEND Internal Medicine
DX: E11.9 Type 2 diabetes mellitus without complications (principal); E55.9 Vitamin D deficiency, unspecified; E78.2 Mixed hyperlipidemia; I10 Essential (primary) hypertension; F17.210 Nicotine dependence, cigarettes, uncomplicated; K21.00 Gastro-esophageal reflux disease with esophagitis, without bleeding; R05.9 Cough, unspecified; Z88.5 Allergy status to narcotic agent; Z98.890 Other specified postprocedural states; Z82.49 Family history of ischemic heart disease and other diseases of the circulatory system; Z79.82 Long term (current) use of aspirin; Z79.899 Other long term (current) drug therapy

== ENCOUNTER 2023-10-15 16:00 | Emergency (ER) | payer OTHER ==
[~2023-10-15] VITALS: Ht 172.7 cm; Wt 108.9 kg
[2023-10-15] MEDS ORDERED: INFUSION IV ONE ×2 (16:50)
[2023-10-15] MEDS ORDERED: RECOMBINANT IV ONE ×2 (16:50)
[2023-10-15] MEDS ORDERED: ALTEPLASE IV ONE ×2 (16:50)
[2023-10-15] MEDS ORDERED: FARXIGA10 M1 PO (16:51)
[2023-10-15] MEDS ORDERED: CARVEDILOL12.5 MG PO (16:51)
[2023-10-15] MEDS ORDERED: ATORVASTATIN CA80 M1 PO (16:51)
[2023-10-15 16:52] LABS: BASO % 0.2 % (0.0-1.0); EOS # 0.1 10*3/uL (0.0-0.4); EOS % 1.1 % (1.0-4.0); HEMATOCRIT 38.3 % (42.0-52.0); LYMPH # 2.8 10*3/uL (1.3-4.4); LYMPH % 34.2 % (27.0-41.0); MEAN CELL VOLUME 93.2 fl (80.0-94.0); MEAN CORPUSCULAR HGB 31.1 pg (27.0-31.0); MEAN CORPUSCULAR HGB CONC 33.4 g/dl (33.0-37.0); MEAN PLATELET VOLUME 9.1 fl (9.6-12.3); MONO # 0.6 10*3/uL (0.1-1.0); MONO % 7.8 % (3.0-9.0); NEUT # 4.6 10*3/uL (2.3-7.9); NEUT % 56.6 % (47.0-73.0); PLATELET COUNT AUTOMATED 151 10*3/uL (130-400); RED BLOOD COUNT 4.11 10*6/uL (4.50-5.90); RED CELL DISTRI WIDTH 14.2 % (0-14.5); WHITE BLOOD COUNT 8.1 10*3/uL (4.8-10.8)
[2023-10-15] MEDS ORDERED: GLIPIZIDE2.5 MG PO (16:52)
[2023-10-15 17:01] LABS: ACT PARTIAL THROMBO TIME 28.4 SECONDS (20.0-32.1)
[2023-10-15 17:09] LABS: ALKALINE PHOSPHATASE 96 U/L (46-116); BUN 9 mg/dl (9-23); CHLORIDE 105 mmol/L (98-107); LIPASE 35 U/L (12-53); POTASSIUM 3.3 mmol/L (3.4-5.1); SGPT/ALT 16 U/L (5-49); TOTAL PROTEIN 6.8 gm/dL (6.0-8.0)
[2023-10-15] MEDS ORDERED: SODIUM CHLORIDE 0.9% 100 ML BAG IV ONE (17:40)
[2023-10-15] MEDS ORDERED: IOHEXOL 350 MG/ML 100 ML VIAL IV ONE (17:40)
[2023-10-15] MEDS ORDERED: MAGNESIUM SULFATE 100 ML IV ONE (17:50)
[2023-10-15 20:36] LABS: BILIRUBIN Negative (Negative); BLOOD Negative (Negative); CLARITY Clear (Clear); COLOR Yellow (Yellow); GLUCOSE 2+ (Negative); KETONE Trace (Negative); LEUKO ESTERASE 1+ (Negative); NITRITE Negative (Negative); PH 6.5 (4.5-8.0); SPECIFIC GRAVITY >= 1.030 (1.001-1.030)
[2023-10-15 20:52] LABS: BACTERIA 1+; WBC 51-100 wbc/hpf (0-5)
[2023-10-15 21:38] VITALS: BP 149/72
== END 2023-10-15 23:22 | disposition short-term general hospital (02) ==
LOC: ED 16:00
PROVIDERS: Internal Medicine
DX: I63.9 Cerebral infarction, unspecified (principal); F17.200 Nicotine dependence, unspecified, uncomplicated; Z88.5 Allergy status to narcotic agent; Z79.899 Other long term (current) drug therapy; Z79.82 Long term (current) use of aspirin; Z86.73 Personal history of transient ischemic attack (TIA), and cerebral infarction without residual deficits; Z90.49 Acquired absence of other specified parts of digestive tract; Z90.89 Acquired absence of other organs

== ENCOUNTER 2024-03-09 13:07 | Inpatient (IN) | payer OTHER ==
[~2024-03-09] VITALS: Ht 175.2 cm; Wt 101.6 kg
[2024-03-09] VITALS: BP 116/54
[~2024-03-09 13:07] MED LIST changes: +ATORVASTATIN CA80 M1 PO; +CARVEDILOL12.5 MG PO; +FARXIGA10 M1 PO; +GLIPIZIDE2.5 MG PO
[2024-03-09 13:47] VITALS: BP 155/95
[2024-03-09] MEDS ORDERED: VITAMIN D325 MCG PO (13:49)
[2024-03-09 14:04] LABS: BASO % 0.4 % (0.0-1.0); EOS # 0.1 10*3/uL (0.0-0.4); EOS % 0.9 % (1.0-4.0); LYMPH # 2.9 10*3/uL (1.3-4.4); LYMPH % 38.5 % (27.0-41.0); MEAN CELL VOLUME 88.6 fl (80.0-94.0); MEAN CORPUSCULAR HGB 30.7 pg (27.0-31.0); MEAN CORPUSCULAR HGB CONC 34.6 g/dl (33.0-37.0); MEAN PLATELET VOLUME 9.4 fl (9.6-12.3); MONO # 0.5 10*3/uL (0.1-1.0); MONO % 6.6 % (3.0-9.0); NEUT % 53.3 % (47.0-73.0); PLATELET COUNT AUTOMATED 131 10*3/uL (130-400); WHITE BLOOD COUNT 7.5 10*3/uL (4.8-10.8)
[2024-03-09 14:14] LABS: ACT PARTIAL THROMBO TIME 25.6 SECONDS (20.0-32.1)
[2024-03-09 14:15] LABS: BILIRUBIN Negative (Negative); BLOOD Negative (Negative); CLARITY Clear (Clear); COLOR Yellow (Yellow); GLUCOSE 3+ (Negative); KETONE Negative (Negative); LEUKO ESTERASE Trace (Negative); NITRITE Negative (Negative)
[2024-03-09 14:27] LABS: URINE AMPHETAMINES Negative (1000ng/ml); URINE BARBITURATES Negative (200ng/ml); URINE BENZODIAZEPINES Negative (200ng/ml); URINE CANNABINOIDS (THC) Negative (50ng/ml); URINE COCAINE Negative (300ng/ml); URINE METHADONE Negative (300ng/ml); URINE OPIATES Negative (300ng/ml); URINE PHENCYCLIDINE Negative (25ng/ml)
[2024-03-09 14:33] LABS: BACTERIA TRACE
[2024-03-09 14:41] LABS: ALKALINE PHOSPHATASE 125 U/L (46-116); BUN 10 mg/dl (9-23); CHLORIDE 100 mmol/L (98-107); POTASSIUM 4.1 mmol/L (3.4-5.1); SGPT/ALT 31 U/L (5-49); TOTAL PROTEIN 6.9 gm/dL (6.0-8.0)
[2024-03-09 14:42] LABS: ETHYL ALCOHOL < 3.0 mg/dl (<3)
[2024-03-09] MEDS ORDERED: MAGNESIUM SULFATE 100 ML IV ONE (16:05)
[2024-03-09] MEDS ORDERED: ACETAMINOPHEN 325 MG TAB PO PRN (16:20)
[2024-03-09] MEDS ORDERED: BISACODYL 10 MG SUPP R PRN (16:20)
[2024-03-09] MEDS ORDERED: ACETAMINOPHEN 650 MG SUPP R PRN (16:20)
[2024-03-09] MEDS ORDERED: BISACODYL 5 MG TAB PO PRN (16:20)
[2024-03-09] MEDS ORDERED: DEXTROSE 10 % IN WATER 250 ML IV PRN (16:20)
[2024-03-09] MEDS ORDERED: INSULIN LISPRO 1 UNIT/0.01 ML SQ SCH (16:30)
[2024-03-09 17:00] VITALS: BP 146/89
[2024-03-09] MEDS ORDERED: ASPIRIN, CHEWABLE 81 MG TAB PO ONE (17:20)
[2024-03-09 17:30] VITALS: BP 164/79
[2024-03-09 20:00] VITALS: BP 132/56
[2024-03-10] VITALS: BP 138/40
[2024-03-10 05:38] LABS: ALKALINE PHOSPHATASE 117 U/L (46-116); BUN 10 mg/dl (9-23); CHLORIDE 101 mmol/L (98-107); CHOLESTEROL 203 mg/dL (<200); POTASSIUM 4.2 mmol/L (3.4-5.1); SGPT/ALT 26 U/L (5-49); TOTAL PROTEIN 6.6 gm/dL (6.0-8.0); TRIGLYCERIDES 461 mg/dl (<150)
[2024-03-10 06:25] LABS: ACT PARTIAL THROMBO TIME 26.9 SECONDS (20.0-32.1)
[2024-03-10 06:34] LABS: BASO % 0.3 % (0.0-1.0); EOS # 0.1 10*3/uL (0.0-0.4); HEMATOCRIT 37.1 % (42.0-52.0); LYMPH # 2.3 10*3/uL (1.3-4.4); LYMPH % 39.3 % (27.0-41.0); MEAN CELL VOLUME 89.4 fl (80.0-94.0); MEAN CORPUSCULAR HGB 31.3 pg (27.0-31.0); MEAN PLATELET VOLUME 9.9 fl (9.6-12.3); MONO # 0.5 10*3/uL (0.1-1.0); NEUT % 50.2 % (47.0-73.0); PLATELET COUNT AUTOMATED 114 10*3/uL (130-400); RED BLOOD COUNT 4.15 10*6/uL (4.50-5.90); RED CELL DISTRI WIDTH 13.1 % (0-14.5); WHITE BLOOD COUNT 5.9 10*3/uL (4.8-10.8)
[2024-03-10 08:00] VITALS: BP 154/78
[2024-03-10 09:03] LABS: VITAMIN D, 25-HYDROXY 43.4 ng/mL (30-100)
[2024-03-10] MEDS ORDERED: Vitamin D 1,000 IU TAB (25 MCG) PO SCH (10:00)
[2024-03-10] MEDS ORDERED: ASPIRIN, CHEWABLE 81 MG TAB PO SCH (10:00)
[2024-03-10] MEDS ORDERED: OMEPRAZOLE 20 MG CAP PO SCH (10:00)
[2024-03-10] MEDS ORDERED: Enoxaparin Sodium 40 MG/0.4 ML SYR SC SCH (10:00)
[2024-03-10] MEDS ORDERED: Fish Oil 1,000 MG CAP PO SCH (10:00)
[2024-03-10] MEDS ORDERED: LISINOPRIL 5 MG TAB PO SCH (10:00)
[2024-03-10] MEDS ORDERED: CARVEDILOL 12.5 MG TAB PO SCH (10:00)
[2024-03-10] MEDS ORDERED: GADOTERATE MEGLUMINE 10 MMOL/20 ML VIAL IV ONE (10:29)
[2024-03-10] MEDS ORDERED: SODIUM CHLORIDE 0.9% 50 ML IV ONE (10:29)
[2024-03-10 12:00] VITALS: BP 149/82
[2024-03-10 16:00] VITALS: BP 127/70
[2024-03-10 20:00] VITALS: BP 143/62
[2024-03-10] MEDS ORDERED: ATORVASTATIN CALCIUM 80 MG TAB PO SCH (22:00)
[2024-03-10] MEDS ORDERED: Insulin Glargine, Recombinan 1 UNIT/0.01 ML SC SCH (22:00)
[2024-03-11] VITALS: BP 125/58
[2024-03-11 06:13] LABS: BUN 15 mg/dl (9-23); CHLORIDE 102 mmol/L (98-107); POTASSIUM 4.5 mmol/L (3.4-5.1)
[2024-03-11 06:19] LABS: BASO % 0.3 % (0.0-1.0); EOS # 0.1 10*3/uL (0.0-0.4); EOS % 2.2 % (1.0-4.0); LYMPH # 2.4 10*3/uL (1.3-4.4); LYMPH % 37.3 % (27.0-41.0); MEAN CELL VOLUME 92.2 fl (80.0-94.0); MEAN CORPUSCULAR HGB 30.5 pg (27.0-31.0); MEAN CORPUSCULAR HGB CONC 33.1 g/dl (33.0-37.0); MEAN PLATELET VOLUME 9.7 fl (9.6-12.3); MONO # 0.5 10*3/uL (0.1-1.0); MONO % 8.1 % (3.0-9.0); NEUT # 3.3 10*3/uL (2.3-7.9); NEUT % 51.9 % (47.0-73.0); PLATELET COUNT AUTOMATED 143 10*3/uL (130-400); RED BLOOD COUNT 4.23 10*6/uL (4.50-5.90); RED CELL DISTRI WIDTH 13.1 % (0-14.5); WHITE BLOOD COUNT 6.3 10*3/uL (4.8-10.8)
[2024-03-11 08:00] VITALS: BP 130/53
[2024-03-11] MEDS ORDERED: Clopidogrel Hydrogen Sulfate 75 MG TAB PO SCH (10:00)
[2024-03-11] MEDS ORDERED: CLOPIDOGREL75 MG PO (13:46)
== END 2024-03-11 14:15 | disposition home or self-care (01) | DRG 65 ==
LOC: ED 13:07 → ICCU 16:11 → EDHOLD 16:11 → ICCU 17:00
PROVIDERS: Internal Medicine; Student in an Organized Health Care Education/Training Program; ADMIT Student in an Organized Health Care Education/Training Program; ATTEND Student in an Organized Health Care Education/Training Program
DX: I63.9 Cerebral infarction, unspecified (principal); E87.1 Hypo-osmolality and hyponatremia; Z94.84 Stem cells transplant status; I50.32 Chronic diastolic (congestive) heart failure; D64.9 Anemia, unspecified; K21.9 Gastro-esophageal reflux disease without esophagitis; I11.0 Hypertensive heart disease with heart failure; E83.42 Hypomagnesemia; R74.8 Abnormal levels of other serum enzymes; I25.10 Atherosclerotic heart disease of native coronary artery without angina pectoris; R81 Glycosuria; E78.2 Mixed hyperlipidemia; E11.65 Type 2 diabetes mellitus with hyperglycemia; F17.200 Nicotine dependence, unspecified, uncomplicated; I25.5 Ischemic cardiomyopathy; I25.2 Old myocardial infarction; Z88.5 Allergy status to narcotic agent; Z90.49 Acquired absence of other specified parts of digestive tract; Z83.3 Family history of diabetes mellitus; Z82.49 Family history of ischemic heart disease and other diseases of the circulatory system; Z85.72 Personal history of non-Hodgkin lymphomas

== ENCOUNTER → 2024-03-23 | Outpatient (CLI) | payer OTHER ==
[~2024-03-23] MED LIST changes: +CLOPIDOGREL75 MG PO; +VITAMIN D325 MCG PO
== END | disposition home or self-care (01) ==
LOC: RESCLI 02:34
PROVIDERS: ATTEND Internal Medicine
DX: I63.9 Cerebral infarction, unspecified (principal); E55.9 Vitamin D deficiency, unspecified; R05.9 Cough, unspecified; E11.9 Type 2 diabetes mellitus without complications; E78.2 Mixed hyperlipidemia; K21.9 Gastro-esophageal reflux disease without esophagitis; I10 Essential (primary) hypertension; Z88.5 Allergy status to narcotic agent; Z79.899 Other long term (current) drug therapy; Z79.82 Long term (current) use of aspirin; Z98.890 Other specified postprocedural states

== ENCOUNTER → 2024-04-08 | Outpatient (CLI) | payer OTHER ==
[2024-04-08 11:45] LABS: BASO % 0.3 % (0.0-1.0); EOS # 0.1 10*3/uL (0.0-0.4); EOS % 1.9 % (1.0-4.0); HEMATOCRIT 37.1 % (42.0-52.0); MEAN CELL VOLUME 93.7 fl (80.0-94.0); MEAN CORPUSCULAR HGB 30.8 pg (27.0-31.0); MEAN CORPUSCULAR HGB CONC 32.9 g/dl (33.0-37.0); MEAN PLATELET VOLUME 9.6 fl (9.6-12.3); MONO # 0.4 10*3/uL (0.1-1.0); MONO % 6.3 % (3.0-9.0); NEUT # 3.2 10*3/uL (2.3-7.9); NEUT % 50.3 % (47.0-73.0); PLATELET COUNT AUTOMATED 143 10*3/uL (130-400); RED BLOOD COUNT 3.96 10*6/uL (4.50-5.90); RED CELL DISTRI WIDTH 13.9 % (0-14.5); WHITE BLOOD COUNT 6.3 10*3/uL (4.8-10.8)
[2024-04-08 12:11] LABS: FREE T4 1.13 ng/dl (0.89-1.76)
== END | disposition home or self-care (01) ==
LOC: LAB 10:59
PROVIDERS: Student in an Organized Health Care Education/Training Program; ATTEND Internal Medicine
DX: E29.1 Testicular hypofunction (principal)

== ENCOUNTER → 2024-06-22 | Outpatient (CLI) | payer OTHER | END | disposition home or self-care (01) | LOC: RESCLI 01:34 | PROVIDERS: ATTEND Internal Medicine | DX: Z23 Encounter for immunization (principal); E11.9 Type 2 diabetes mellitus without complications; E78.2 Mixed hyperlipidemia; I10 Essential (primary) hypertension; I25.10 Atherosclerotic heart disease of native coronary artery without angina pectoris; I63.9 Cerebral infarction, unspecified; E55.9 Vitamin D deficiency, unspecified; K21.9 Gastro-esophageal reflux disease without esophagitis ==